=== PATIENT | male | born 1990 | race Caucasian/White ===

== ENCOUNTER 2021-07-18 07:58 | Outpatient (CLI) | payer OTHER, SELFPAY ==
--- NOTE | 2021-07-19 17:13 | WPDHOMESLEEP ---
Sleep Study - Home Unattended Date of Study: 07/18/21 Ordering Provider: Alexx Starr MD Interpreting Provider: Gin Sebastian, DO Home Sleep Study Type: Apnea Link Air Height: 1.83 m Weight: 133.81 kg Body Mass Index: 40.0 Neck Circumference (inches): 20.5 [place]: 7 Reason for Sleep Study Daytime hypersomnia. Sleep History The patient is a 30-year-old male with hypertension, hyperlipidemia and chest pain that had a home sleep test ordered by his quality assurance assistant for evaluation of sleep apnea. The patient denies awakening from sleep short of breath. He denies awakening at night with heartburn, belching or cough. He occasionally snores but it is rarely loud enough that others complain. He rarely has trouble sleeping when he has a cold. He denies waking up gasping for air throughout the night. He occasionally has breathing problems at night observed by others. He denies sweating excessively at night. He denies having heart palpitations or irregular heartbeats during the night. He denies falling asleep during the day and while driving. He denies sleep paralysis, cataplexy and hypnagogic / hypnopompic hallucinations. He rarely has nightmares. He occasionally remembers his dreams. He rarely has thoughts racing through his mind. He denies feeling sad or depressed. He rarely has anxiety. He denies having muscular tension. He rarely notices parts of his body jerk. He rarely kicks during the night. He denies crawling and aching feelings in his legs. He rarely has leg pain during the night. He rarely grinds his teeth during sleep but never awakens with morning jaw pain. He is occasionally bothered by pain during the day and occasionally awakened by pain during the night. He rarely wakes up feeling stiff in the morning. He rarely wakes up with sore achy muscles. He rarely wakes up with pain in the neck, spine and other joints. He goes to bed between 10 30 and 11:00 p.m. on weekdays and between 11 it p.m. and midnight on the weekends. It takes him 5-10 minutes to fall asleep. He wakes up 1-2 times throughout the night to use the restroom. He can fall back asleep within a couple minutes. He wakes up at 6:00 a.m. on weekdays and between 7 and 8:00 a.m. on the weekends. He will take gets 7 hours of sleep night. He will stay in bed for few minutes after waking up in the morning. He currently lives with his . He does not consume any caffeinated beverages within 2 hours of bedtime. He does not engage in physical exercise before bedtime. She will watch television before falling asleep. He does not take naps in the afternoon or the evening. He drinks 2-4 alcoholic beverages per weekend. He denies tobacco, caffeine and recreational drug use. [facility] Past Medical History Medical History Hypertension Medications Home Medications Medication Instructions Recorded Confirmed Type amlodipine 07/19/21 History metoprolol succinate 50 mg PO BID 07/19/21 07/19/21 History Sleep Procedure This test was performed using 4 channel monitoring including respiratory effort channel, snoring channel, heart rate channel, and oxygen saturation channel. This study was scored using CMS guidelines. Sleep Architecture The patient had a total recording time of 7 hours 40 minutes and total monitoring time of 7 hours 13 minutes. The patient spent 6 hours 24 minutes, 88.7% of total monitoring time in the supine position. Respiratory Analysis The patient had an AHI of 5.9 in the central apnea index of 0.1. The supine AHI was 6.7. The patient had 8 apneas and 35 hypopneas. No Donn-Diana respirations were seen. Oximetry Data The patient had a baseline oxygen saturation of 98% with an average oxygen saturation of 93%. The lowest recorded oxygen saturation was 87%. The patient had 37 desaturations resulting in an oxygen desaturation index of 5. The patient spent 0 minutes wit
[2021-07-19 17:18] VITALS: BMI 40.0
== END 2021-07-19 10:49 | disposition home or self-care (01) ==
LOC: ANHCSM 08:07
PROVIDERS: PCP Family Medicine Sports Medicine; Visit Provider Internal Medicine Cardiovascular Disease
DX: G47.10 Hypersomnia, unspecified (principal); G47.33 Obstructive sleep apnea (adult) (pediatric)
CPT/HCPCS: 95806

== ENCOUNTER 2023-08-03 07:34 | Outpatient (CLI) | payer OTHER, SELFPAY ==
--- NOTE | ~2023-08-03 | CT_ITS ---
EXAMINATION: CT diagnostic chest w con DATE: 08/03/2023 08:25 INDICATION: Chest pain, unspecified TECHNIQUE: Transaxial computed tomographic images of the chest were obtained after the administration of 75 cc of Omnipaque 350 intravenous contrast. The dose-length product (DLP) was 750.21 mGy-cm. Ite rative reconstruction was used. COMPARISON: None FINDINGS: There are minimal dependent airspace opacities of the lower lobes. No pleural effusion or p neumothorax. No pathologically enlarged thoracic lymph nodes are identified. The heart size is normal . There is mild thoracic spondylosis. A stone is present in the nondistended gallbladder. IMPRESSION: 1. No CT correlate for the patient's symptoms. 2. Cholelithiasis. Reviewed, dictated and finalized at location A.
[2023-08-03 08:18] LABS: Estimated Glomerular Filt Rate > 60
== END 2023-08-03 07:35 | disposition home or self-care (01) ==
PROVIDERS: PCP Family Medicine Sports Medicine; Visit Provider Internal Medicine Cardiovascular Disease
DX: R07.9 Chest pain, unspecified (principal); K80.20 Calculus of gallbladder without cholecystitis without obstruction
CPT/HCPCS: 71260; Q9967